=== PATIENT | female | born 1995 | race African-American/Black ===

== ENCOUNTER → 2019-02-11 | Outpatient (CLI) | payer MEDICAID | LOC: COL.VAS 11:15 | DX: I07.1 Rheumatic tricuspid insufficiency (principal); I37.1 Nonrheumatic pulmonary valve insufficiency ==

== ENCOUNTER 2019-03-29 11:14 | Emergency (ER) | payer SELFPAY ==
[~2019-03-29] VITALS: Ht 152.4 cm; Wt 90.0 kg
[2019-03-29 11:29] VITALS: TEMP 98
[2019-03-29 12:04] LABS: COLLECTION METHOD CLEAN CATCH
[2019-03-29 12:11] LABS: STREP SCREEN NEGATIVE
[2019-03-29 12:11] LABS: MUCOUS Present /lpf; PH 6 (5-8); SQUAMOUS EPITHELIAL 0-2 /hpf; URINE APPEARANCE Hazy; URINE BACTERIA None Seen /hpf; URINE BILIRUBIN Negative (NEGATIVE); URINE BLOOD Negative (NEGATIVE); URINE COLOR Yellow; URINE GLUCOSE Negative (NEGATIVE); URINE KETONE Negative (NEGATIVE); URINE LEUKOCYTE ESTERASE Negative (NEGATIVE); URINE NITRATE Negative (NEGATIVE); URINE PROTEIN(semi-quant) 1+ (NEGATIVE); URINE RBC 0-2 /hpf
[2019-03-29] MEDS ORDERED: TAMIFLU 75MG75 MG PO (12:46)
[2019-03-29 13:31] VITALS: BP 123/70; PULSE 92
== END 2019-03-29 13:33 | disposition home or self-care (01) ==
LOC: COL.ER 11:14
PROVIDERS: Emergency Medicine; Physician Assistant
DX: O98.512 Other viral diseases complicating pregnancy, second trimester (principal); J11.1 Influenza due to unidentified influenza virus with other respiratory manifestations; Z3A.20 20 weeks gestation of pregnancy
CPT/HCPCS: J7030

== ENCOUNTER 2019-08-17 09:46 | Inpatient (IN) | payer BC ==
[~2019-08-17] VITALS: Ht 160 cm; Wt 103.6 kg
[~2019-08-17 09:46] MED LIST: TAMIFLU 75MG75 MG PO
[2019-08-18] VITALS (23 sets, daily range): BP systolic 104–182; BP diastolic 56–97; PULSE 64–101; TEMP 98.2–98.9
[2019-08-18 14:38] LABS: HEMATOCRIT 39.3 % (37.0-47.0); MEAN CELL VOLUME 92 fl (80.0-100.0); MEAN CORPUSCULAR HEMOGLOBIN 30 pg (27.0-31.0); MEAN CORPUSCULAR HGB CONC 33 g/dl (33.0-37.0); MEAN PLATELET VOLUME 14.1 fl (7.4-10.4); PLATELET COUNT 63 K/mm3 (130-400); RED BLOOD COUNT 4.29 M/mm3 (4.10-5.30); REDCELL DISTRIBUTION WIDTH-CV 13.2 % (11.5-14.5)
[2019-08-18] MEDS ORDERED: PRENATAL (14:44)
[2019-08-18 15:41] LABS: BAND 2 % (0-10); LYMPHOCYTE 12 % (20.0-51.0); NEUTROPHILS 83 % (42.0-75.2); PLATELET ESTIMATE DECREASED (NORMAL)
[2019-08-18] MEDS ORDERED: MILLIPRED5 MG PO (17:29)
--- NOTE | 2019-08-18 19:19 | NUR ---
PT'S BED CHANGED DUE TO LOTS OF FLUID LEAKING.
--- NOTE | 2019-08-18 22:55 | NUR ---
PT UP TO BR, SVE DONE BEFORE DUE TO PT HAVING RECTAL PRESSURE.
[2019-08-19] VITALS (42 sets, daily range): BP systolic 113–184; BP diastolic 55–94; PULSE 68–108; TEMP 98.2–99.4
--- NOTE | 2019-08-19 06:15 | NUR ---
Bedside report recieved from Ko ZAMORA. Patient sitting on edge of bed. 0630: FHR difficult to trace due to patient moving with contractions. Monitor being adjusted. 0645: Patient standing and leaning on edge of bed. 0710: Patient in knees/chest position on bed resting. Difficulty tracing FHR and monitor being adjusted. 0723: Dr. Braun updated on patient and no new orders given. Patient requesting stadol at this time. Patient left lateral and peanut ball between knees. 0730: SVE-7/90/-2 0734: Stadol given IV 1mg. 0740: FHR baseline 125-130bpm and variable/early decelerations noted. Spontaneous returns to baseline. 0815: Patient resting and FHR tracing variable decelerations. 0820: Patient states she feels alot of pressure and needs to poop. 0825: SVE-10/100/+2 with bloody show. 0828: Dr. Braun called and notified and on his way for delivery. FHR decreasing to 115bpm and patient wedged left. Recurrent early/variable decelerations.
--- NOTE | 2019-08-19 08:42 | NUR ---
0842: Dr. Braun at bedside and assessing patient and FHR strip. SVE done per Dr. Braun and patient prepped for vaginal delivery. Bed taken apart and feet resting in stirrup. 0846: Patient given instrucitons on pushing. Pericare done. Lidocaine injected per Dr. Braun to perineum. Patient tolerates well. 0847: Patient pushing with contractions. 0849: Dr. Braun cuts mediolateral episiotomy. 0850: Spontaneous vaginal delivery of viable female boy. Pitocin paused. Head followed by body. Infant bulb syringed by physician and to patients abdomen. Cord clamping delayed. Patient quiet at this time. Cord clamped by physician and cut by FOB. Cord blood obtained. 0857: Spontaneous delivery of placenta and pitocin started per protocol at 333mU. Fundal massage done/firm/bleeding WNL. Patient repositioned and plan of care discussed. Ice pack to perineum.
--- NOTE | 2019-08-19 11:20 | NUR ---
Patient states she needs to go to the bathroom. Patient ambulates to bathroom and voids, pericare done, new gown/underwear and ice pack on. Patient stands and watching hands and states "chest is very heavy" patient tries to pass out and patient back to toilet. Patient assisted to wheelchair and to new room and assissted to bed. Plan of care discussed
[2019-08-20 02:00] VITALS: BP 130/64; PULSE 95; TEMP 98.8
[2019-08-20 07:02] LABS: BASO % 0.2 % (0.0-2.0); EOS % 0.2 % (0-4.0); GRAN # 9.1 (1.4-6.5); GRAN % 75.9 % (42.2-75.2); HEMOGLOBIN 11.1 g/dl (12.5-16.0); LYMPH # 1.9 (1.2-3.4); LYMPH % 15.9 % (20.0-51.0); MEAN CELL VOLUME 94 fl (80.0-100.0); MEAN CORPUSCULAR HEMOGLOBIN 31 pg (27.0-31.0); MEAN CORPUSCULAR HGB CONC 33 g/dl (33.0-37.0); MEAN PLATELET VOLUME 14.1 fl (7.4-10.4); MONO # 0.9 (0.1-0.6); MONO % 7.3 % (1.7-9.3); PLATELET COUNT 73 K/mm3 (130-400); RED BLOOD COUNT 3.61 M/mm3 (4.10-5.30)
[2019-08-20 07:06] LABS: HEMATOCRIT 33.8 % (37.0-47.0)
[2019-08-20 07:10] VITALS: BP 128/80; PULSE 80; TEMP 97.8
[2019-08-20] MEDS ORDERED: PERCOCET 325 MG1 TA2 PO (09:11)
[2019-08-20] MEDS ORDERED: IBU600 MG PO (09:11)
[2019-08-20 21:23] VITALS: BP 123/65; PULSE 75; TEMP 99.3
[2019-08-21 07:20] VITALS: BP 133/80; PULSE 98; TEMP 98.3
[2019-08-21 16:18] VITALS: BP 124/75; PULSE 94; TEMP 98.8
== END 2019-08-21 19:50 | disposition home or self-care (01) | DRG 807 ==
LOC: LDR 09:46 → OB 08-19 11:15
PROVIDERS: ADMIT Obstetrics & Gynecology
PROC: 10E0XZZ Delivery of Products of Conception, External Approach (ICD-10-PCS; principal; 2019-08-18)
PROC: 0W8NXZZ Division of Female Perineum, External Approach (ICD-10-PCS; 2019-08-18)
DX: O99.12 Other diseases of the blood and blood-forming organs and certain disorders involving the immune mechanism complicating childbirth (principal); Z37.0 Single live birth; D69.6 Thrombocytopenia, unspecified; Z3A.40 40 weeks gestation of pregnancy; O48.0 Post-term pregnancy; O69.81X0 Labor and delivery complicated by cord around neck, without compression, not applicable or unspecified; O69.2XX0 Labor and delivery complicated by other cord entanglement, with compression, not applicable or unspecified; O99.214 Obesity complicating childbirth
CPT/HCPCS: J0595; J2540; J2590; J7120

== ENCOUNTER 2019-08-25 18:50 | Emergency (ER) | payer BC ==
[~2019-08-25] VITALS: Ht 160 cm; Wt 93.6 kg
[~2019-08-25 18:50] MED LIST changes: +IBU600 MG PO; +MILLIPRED5 MG PO; +PERCOCET 325 MG1 TA2 PO; +PRENATAL
[2019-08-25 18:52] VITALS: BP 127/82; TEMP 98.1
[2019-08-25 19:35] LABS: HEMOGLOBIN 11.4 g/dl (12.5-16.0); MEAN CELL VOLUME 94 fl (80.0-100.0); MEAN CORPUSCULAR HEMOGLOBIN 30 pg (27.0-31.0); MEAN CORPUSCULAR HGB CONC 32 g/dl (33.0-37.0); MEAN PLATELET VOLUME 13.9 fl (7.4-10.4); PLATELET COUNT 136 K/mm3 (130-400); RED BLOOD COUNT 3.76 M/mm3 (4.10-5.30)
[2019-08-25 19:47] LABS: HEMATOCRIT 35.4 % (37.0-47.0)
[2019-08-25 19:48] LABS: ALANINE AMINOTRANSFERASE 88 U/L (4-34); ALBUMIN 3.9 gm/dL (3.5-5.0); ALKALINE PHOSPHATASE 96 U/L (50-136); ANION GAP 8 mmol/L (7-16); AST,SGOT 54 U/L (15-37); BILIRUBIN,TOTAL 0.5 mg/dL (0.0-1.0); BLOOD UREA NITROGEN 17 mg/dL (7-17); CALCIUM 8.8 mg/dL (8.4-10.2); CARBON DIOXIDE 23 mmol/L (22-30); CHLORIDE 107 mmol/L (98-107); CREATININE, serum 0.69 (0.52-1.25); GLUCOSE 95 mg/dL (74-106); LIPASE 88 U/L (23-300); POTASSIUM 3.9 mmol/L (3.4-5.0); SODIUM 137 mmol/L (137-145); TOTAL PROTEIN 8.3 gm/dL (6.4-8.2)
[2019-08-25 19:50] LABS: COLLECTION METHOD CATHETER
[2019-08-25 19:50] LABS: LYMPHOCYTE 39 % (20.0-51.0); NEUTROPHILS 54 % (42.0-75.2); PLATELET ESTIMATE NORMAL (NORMAL); TOXIC GRANULATION PRESENT
[2019-08-25 19:57] LABS: MUCOUS Present /lpf; PH 5 (5-8); SQUAMOUS EPITHELIAL 0-2 /hpf; URINE APPEARANCE Hazy; URINE BACTERIA Rare /hpf; URINE BILIRUBIN Negative (NEGATIVE); URINE BLOOD 3+ (NEGATIVE); URINE COLOR Yellow; URINE GLUCOSE Negative (NEGATIVE); URINE KETONE Trace (NEGATIVE); URINE LEUKOCYTE ESTERASE Trace (NEGATIVE); URINE NITRATE Negative (NEGATIVE); URINE PROTEIN(semi-quant) Negative (NEGATIVE); URINE RBC >50 /hpf; URINE UROBILINOGEN Negative (NEGATIVE)
[2019-08-25 19:59] LABS: TROPONIN-I < 0.012 ng/mL (0.000-0.035)
[2019-08-25] MEDS ORDERED: CEPHALEXIN500 M1 PO (21:11)
[2019-08-25 21:25] VITALS: PULSE 87
== END 2019-08-25 21:21 | disposition home or self-care (01) ==
LOC: COL.ER 18:50
PROVIDERS: Emergency Medicine; Nurse Practitioner
DX: O90.89 Other complications of the puerperium, not elsewhere classified (principal); R06.02 Shortness of breath; R07.9 Chest pain, unspecified; O86.20 Urinary tract infection following delivery, unspecified
CPT/HCPCS: Q9967